=== PATIENT | female | born 2000 | race Caucasian/White ===

== ENCOUNTER 2021-05-09 20:45 | Inpatient (IN) | payer OTHER ==
[~2021-05-09] VITALS: Ht 154.9 cm; Wt 101.4 kg
[2021-05-09 21:15] VITALS: BP 126/87
[2021-05-09] MEDS ORDERED: FERR325T81 PO (21:27)
[2021-05-09] MEDS ORDERED: PRENTAB9 PO (21:27)
[2021-05-09] MEDS ORDERED: VALA1TAB5 PO (21:27)
[2021-05-09] MEDS ORDERED: ECOT81TA5 PO (21:27)
[2021-05-09] MEDS ORDERED: LIDOCAINE 1% MDV 20ML VIAL INFIL PRN (22:10)
[2021-05-09] MEDS ORDERED: TRANEXAMIC ACID INJection 1,000 MG in NS 100 ML IV PRN (22:10)
[2021-05-09] MEDS ORDERED: METHYLERGONOVINE MALEATE 0.2 MG/ML VIAL (J2210) IM PRN (22:10)
[2021-05-09] MEDS ORDERED: CARBOPROST TROMETHAMINE 250 MCG/ML AMP IM PRN (22:10)
[2021-05-09] MEDS ORDERED: OXYTOCIN DRIP 30 UNITS in IV 1 EA IV PRN ×6 (22:10)
[2021-05-09] MEDS ORDERED: PROMETHAZINE INJ 25 MG/ML VIAL (J2550) IV ONE (22:45)
[2021-05-09] MEDS ORDERED: BUTORPHANOL 2 MG/ML INJ (J0595) IV ONE (22:45)
[2021-05-09 23:43] VITALS: BP 123/79
[2021-05-10] VITALS (64 sets, daily range): BP systolic 91–143; BP diastolic 50–96
[2021-05-10 01:00] LABS: HEMATOCRIT 37.2 % (36.0-47.0); HEMOGLOBIN 12.1 g/dl (12.0-15.5); MEAN CORPUSCULAR HEMOGLOBIN 27.7 pg (27.0-33.0); MEAN CORPUSCULAR HGB CONC 32.5 g/dl (32.0-36.5); MEAN CORPUSCULAR VOLUME 85.1 fl (80.0-96.0); PLATELET COUNT, AUTOMATED 453 10^3/uL (150-450); RED BLOOD COUNT 4.37 10^6/uL (4.00-5.40); WHITE BLOOD COUNT 13.6 10^3/uL (4.0-10.0)
[2021-05-10] MEDS ORDERED: REFLB XX ONE (06:14)
[2021-05-10] MEDS ORDERED: FENTANYL 2MCG/ML ROPIVACAINE 0.2% IN 0.9% NACL 100ML IVBAG As Ordered ONE (06:15)
[2021-05-10] MEDS ORDERED: ePHEDrine SULFATE 25 MG/5 ML(5MG/ML) SYRINGE As Ordered ONE (07:43)
[2021-05-10] MEDS: ePHEDrine SULFATE 25 MG/5 ML(5MG/ML) SYRINGE IV PRN ×3 (07:45→08:55)
[2021-05-10] MEDS ORDERED: diphenhydrAMINE 50MG/ML VIAL (J1200) IV PRN (08:10)
[2021-05-10] MEDS ORDERED: EPIDURAL/PCA KEYS XX PRN (08:10)
[2021-05-10] MEDS ORDERED: FENTANYL/ROPIVACAINE/NACL BAG 100 ML EPIDURAL SCH (08:10)
[2021-05-10] MEDS ORDERED: ONDANSETRON 4MG/2ML VIAL IV PRN ×2 (08:10→15:55)
[2021-05-10] MEDS ORDERED: REFRIGERATOR IV KEYS XX PRN (08:10)
[2021-05-10] MEDS ORDERED: EPIDURAL COMMENT XX SCH (08:10)
[2021-05-10] MEDS ORDERED: LACTATED RINGER'S 1000 ML IV PRN (08:10)
[2021-05-10] MEDS ORDERED: NALOXONE INJ 0.4MG/1ML VIAL (J2310 PER 1MG) IV PRN (08:10)
[2021-05-10] MEDS ORDERED: OXYTOCIN DRIP 30 UNITS in IV 1 EA IV SCH ×2 (08:30→15:55)
[2021-05-10 15:17] LABS: CORD GAS ABE V -7.4; CORD GAS HCO3 V 19.2 MEQ/L; CORD GAS O2 SAT V 68.5 %; CORD GAS PCO2 V 42.6 mmHg; CORD GAS PH V 7.272 UNITS; CORD GAS PO2 V 32.1 mmHg; CORD GAS SBC V 17.9 MEQ/L; CORD GAS TCO2 V 20.5 MEQ/L
[2021-05-10 15:17] LABS: CORD GAS ABE A -7.1; CORD GAS HCO3 A 19.1 MEQ/L; CORD GAS O2 SAT A 69.9 %; CORD GAS PH A 7.287 UNITS; CORD GAS PO2 A 32.6 mmHg; CORD GAS SBC A 18.2 MEQ/L; CORD GAS TCO2 A 20.4 MEQ/L
[2021-05-10] MEDS ORDERED: RHOGAM 300 MCG (1500 IU) INJ (J2790) IM SCH (15:55)
[2021-05-10] MEDS ORDERED: PROMETHAZINE 25 MG TAB PO PRN (15:55)
[2021-05-10] MEDS ORDERED: METHYLERGONOVINE MALEATE 0.2 MG TAB PO PRN (15:55)
[2021-05-10] MEDS: LR 1,000 ML IV SCH ×2 (15:55→23:55)
[2021-05-10] MEDS ORDERED: DOCUSATE SODIUM 100MG CAPSULE PO PRN (15:55)
[2021-05-10] MEDS ORDERED: DIBUCAINE 1% OINTMENT 30GM TOP PRN (15:55)
[2021-05-10] MEDS ORDERED: MEASLES,MUMPS,RUBELLA VACCINE INJ (MMR-II) (90707) SC SCH (15:55)
[2021-05-10] MEDS: IBUPROFEN 800 MG TAB PO SCH ×2 (18:26→22:17)
[2021-05-10] MEDS: ACETAMINOPHEN 500 MG TAB PO SCH (18:27)
[2021-05-10] MEDS: PRENATAL VITAMINS CHEWABLE TABLET PO SCH (18:27)
[2021-05-11] MEDS: ACETAMINOPHEN 500 MG TAB PO SCH ×4 (00:13→19:12)
[2021-05-11 05:21] VITALS: BP 109/58
[2021-05-11] MEDS: IBUPROFEN 800 MG TAB PO SCH ×3 (05:52→22:01)
[2021-05-11 07:09] LABS: HEMATOCRIT 30.4 % (36.0-47.0); MEAN CORPUSCULAR HEMOGLOBIN 28.3 pg (27.0-33.0); MEAN CORPUSCULAR HGB CONC 32.2 g/dl (32.0-36.5); MEAN CORPUSCULAR VOLUME 87.9 fl (80.0-96.0); PLATELET COUNT, AUTOMATED 342 10^3/uL (150-450); RED BLOOD COUNT 3.46 10^6/uL (4.00-5.40); WHITE BLOOD COUNT 11.7 10^3/uL (4.0-10.0)
[2021-05-11 07:27] LABS: HEMOGLOBIN 9.8 g/dl (12.0-15.5)
[2021-05-11] MEDS: PRENATAL VITAMINS CHEWABLE TABLET PO SCH (08:48)
[2021-05-11] MEDS ORDERED: PRENATAL VITAMINS CHEWABLE TABLET PO SCH (09:00)
[2021-05-11 18:05] VITALS: BP 134/79
[2021-05-12] MEDS: ACETAMINOPHEN 500 MG TAB PO SCH ×3 (00:20→12:08)
[2021-05-12] MEDS: IBUPROFEN 800 MG TAB PO SCH (05:37)
[2021-05-12 05:52] VITALS: BP 114/61
[2021-05-12] MEDS: PRENATAL VITAMINS CHEWABLE TABLET PO SCH (08:19)
== END 2021-05-12 13:40 | disposition home or self-care (01) | DRG 806 ==
LOC: M LDO 20:45 → M LDI 21:52 → M OBS 05-10 17:04
PROVIDERS: ADMIT Obstetrics & Gynecology; ATTEND Obstetrics & Gynecology
PROC: 10E0XZZ Delivery of Products of Conception, External Approach (ICD-10-PCS; principal; 2021-05-10)
PROC: 0KQM0ZZ Repair Perineum Muscle, Open Approach (ICD-10-PCS; 2021-05-10)
DX: O48.0 Post-term pregnancy (principal); Z37.0 Single live birth; Z68.41 Body mass index [BMI] 40.0-44.9, adult; O98.52 Other viral diseases complicating childbirth; B00.9 Herpesviral infection, unspecified; Z3A.40 40 weeks gestation of pregnancy; O99.214 Obesity complicating childbirth; E66.9 Obesity, unspecified; O76 Abnormality in fetal heart rate and rhythm complicating labor and delivery; O70.1 Second degree perineal laceration during delivery